=== PATIENT | female | born 1940 | race Two or more races ===

== ENCOUNTER 2019-01-19 13:40 | Outpatient (CLI) | payer MEDICARE, OTHER ==
[~2019-01-19] VITALS: Ht 154.9 cm; Wt 52.6 kg
[2019-01-19 16:09] VITALS: BP 128/64
[2019-01-19] MEDS ORDERED: NEXIUM40 MG ORAL (16:16)
[2019-01-19] MEDS ORDERED: XANAX0.5 MG ORAL (16:16)
[2019-01-19] MEDS ORDERED: ARICEPT10 MG ORAL (16:16)
[2019-01-19] MEDS ORDERED: ADVAIR 100/501 PUFF1 INH (16:16)
[2019-01-19] MEDS ORDERED: PRAVACHOL20 MG ORAL (16:16)
[2019-01-19] MEDS ORDERED: VITAMIN D250000 UNI1 ORAL (16:16)
--- NOTE | 2019-02-10 16:15 | Consultation ---
DATE OF CONSULTATION: 01/19/2019 CONSULTING PHYSICIAN: Walter Villela M.D. REFERRING PHYSICIAN: Lawrence Flores M.D. CHIEF COMPLAINT: Gastric submucosal lesion. HISTORY OF PRESENT ILLNESS: The patient is a 78-year-old [place] female was seen by Dr. Flores, who did endoscopy for some lesions in the stomach and needed endoscopic ultrasound, so he referred her to us for that. PAST MEDICAL HISTORY: 1. Breast cancer. 2. Peptic ulcer disease. 3. GERD. 4. Asthma. PAST SURGICAL HISTORY: Right breast surgery. MEDICATIONS: See medication reconciliation list. FAMILY HISTORY: No family history of GI malignancies. SOCIAL HISTORY: The patient denies any tobacco, alcohol, or drug abuse. ALLERGIES: No known drug allergies. REVIEW OF SYSTEMS: A 10-point review of systems was performed and is positive for gastroesophageal reflux disease and abdominal pain. PHYSICAL EXAMINATION: VITAL SIGNS: Temperature 98.6, blood pressure 128/64, pulse 56, and respirations 20. Weight is 116. Height is 5 feet 1 inch. HEENT: Normocephalic and atraumatic. Sclerae anicteric. NECK: Supple. No evidence of lymphadenopathy. CARDIOVASCULAR: Regular rhythm. Plus S1 and S2. No obvious murmur. LUNGS: Clear to auscultation bilaterally. ABDOMEN: Positive bowel sounds. Soft and nontender. No rebound. No guarding. No peritoneal sign. EXTREMITIES: No cyanosis. No clubbing. No edema. ASSESSMENT AND PLAN: A 78-year-old female with gastric submucosal lesion. We will schedule for EGD and EUS. The patient was informed the risks and benefits of the procedure and she agreed. The patient is scheduled to get an endoscopic ultrasound next week. I want to thank Dr. Flores for this kind referral. Walter Villela M.D. DR: JILL JOB#: [id number] CC: Lawrence Flores M.D.
== END 2019-01-19 15:40 | disposition home or self-care (01) ==
LOC: PAN 13:40
DX: K31.9 Disease of stomach and duodenum, unspecified (principal); K21.9 Gastro-esophageal reflux disease without esophagitis; Z85.3 Personal history of malignant neoplasm of breast; Z87.11 Personal history of peptic ulcer disease; R10.9 Unspecified abdominal pain

== ENCOUNTER 2019-02-06 08:15 | Day surgery (SDC) | payer MEDICARE, OTHER ==
[~2019-02-06] VITALS: Ht 154.9 cm; Wt 53.1 kg
[2019-02-06] VITALS (8 sets, daily range): BP systolic 98–127; BP diastolic 47–74
[~2019-02-06 08:15] MED LIST: ADVAIR 100/501 PUFF1 INH; ARICEPT10 MG ORAL; NEXIUM40 MG ORAL; PRAVACHOL20 MG ORAL; VITAMIN D250000 UNI1 ORAL; XANAX0.5 MG ORAL
[2019-02-06] MEDS ORDERED: DEXILANT60 MG ORAL (09:07)
[2019-02-06] MEDS ORDERED: Propofol 200mg/20ml IV ONE (10:00)
[2019-02-06] MEDS ORDERED: fentaNYL 100 mcg/2 mL IV ONE (10:00)
--- NOTE | 2019-02-06 10:20 | Anethesia Preoperative Eval ---
Anesthesia Pre-op PMH/ROS General Date of Evaluation: Feb 06, 2019 Time of Evaluation: 10:19 Anesthesiologist: Felipe ASA Score: ASA 3 Mallampati Score Class I : Soft palate, uvula, fauces, pillars visible Class II: Soft palate, uvula, fauces visible Class III: Soft palate, base of uvula visible Class IV: Only hard plate visible Mallampati Classification: Class II Surgeon: Manohar Diagnosis: EGD with EUS Surgical Procedure: Esophagial lesion Allergies: Coded Allergies: No Known Allergies (Unverified , 01/19/19) Patient NPO?: Yes Past Medical History Cardiovascular: Denies: HTN, CAD, CA, valve dz, arrhythmia, other Pulmonary: Denies: asthma, COPD, HUMPHREY, other Gastrointestinal/Genitourinary: Reports: GERD; Denies: CRI, ESRD, other Neurologic/Psychiatric: Reports: depression/anxiety; Denies: dementia, CVA, TIA, other Endocrine: Denies: DM, hypothyroidism, steroids, other HEENT: Denies: cataract (L), cataract (R), glaucoma, C[place]BA (L), [place] (R), other Hematology/Immune: Denies: anemia, DVT, bleeding disorder, other Musculoskeletal/Integumentary: Denies: OA, RA, DJD, DDD, edema, other PMH Narrative: as above PSxH Narrative: see H&P Anesthesia Pre-op Phys. Exam Physician Exam Last Vital Signs Date Time Temp Pulse Resp B/P (MAP) Pulse Ox O2 Delivery O2 Flow Rate FiO2 02/06/19 09:09 Room Air 02/06/19 09:00 97.4 56 20 127/65 96 Constitutional: NAD Neurologic: CN 2-12 intact Cardiovascular: RRR, no M/R/G Respiratory: CTA Gastrointestinal: S/NT/ND Airway Exam Mallampati Score: Class II MO: limited Neck: stiff Teeth: missing Dentures: no upper, no lower Anesthesia Pre-op A/P Risk Assessment & Plan Assessment: ASA 2 Plan: Eric Lorenzo MD Feb 06, 2019 10:20
--- NOTE | 2019-02-06 10:34 | Pre-Procedure Note/Attestation ---
Pre-Procedure Note/Attestation Complete Prior to Procedure Planned Procedure: not applicable Procedure Narrative: egd/EUS Indications for Procedure Pre-Operative Diagnosis: gastric sub mucosal lesion Attestation I attest that I discussed the nature of the procedure; its benefits; risks and complications; and alternatives (and the risks and benefits of such alternatives ), prior to the procedure, with the patient (or the patient's legal sales development representative). I attest that, if there was a reasonable possibility of needing a blood transfusion, the patient (or the patient's legal sales development representative) was given the [facility] standardized written summary, pursuant to the [place] Blood Safety Act ([place] Health and Safety Code # 1645, as amended). I attest that I re-evaluated the patient just prior to the surgery and that there has been no change in the patient's H&P, except as documented below: Walter Villela MD Feb 06, 2019 10:34
--- NOTE | 2019-02-06 10:36 | Short Stay Surgery H&P ---
History of Present Illness History of Present Illness Chief Complaint gastric sub mucosal lesion HPI Aaliyah Sparrow is a 78 year old female who was admitted on for Esophageal Lesion Patient History Allergies: Coded Allergies: No Known Allergies (Unverified , 01/19/19) PAST MEDICAL HISTORY: (1) Breast cancer (2) GERD (gastroesophageal reflux disease) (3) Asthma Medication History Scheduled Alprazolam* (Xanax*), 0.5 MG ORAL QHS, (Reported) Dexlansoprazole (Dexilant), 60 MG ORAL DAILY, (Reported) Donepezil Hcl* (Aricept*), 10 MG ORAL DAILY, (Reported) Ergocalciferol (Vitamin D2)* (Vitamin D*), 50,000 UNIT ORAL EVERY TWO WEEKS, ( Reported) Fluticasone/Salmeterol (Advair 100-50 Diskus), 2 PUFF INH EVERY 12 HOURS, ( Reported) Pravastatin Sod* (Pravachol*), 10 MG ORAL BEDTIME, (Reported) Discontinued Medications Esomeprazole Magnesium (Nexium), 40 MG ORAL DAILY, (Reported) Discontinued Reason: Pt stopped taking med Review of Systems Cardiovascular: Reports: no symptoms Respiratory: Reports: no symptoms Skeletal: Reports: no symptoms Gastrointestinal: Reports: no symptoms Genitourinary: Reports: no symptoms Neurologic: Reports: no symptoms Endocrine: Reports: no symptoms Hematologic: Reports: no symptoms Physical Exam Vital Signs Last Vital Signs Date Time Temp Pulse Resp B/P (MAP) Pulse Ox O2 Delivery O2 Flow Rate FiO2 02/06/19 09:09 Room Air 02/06/19 09:00 97.4 56 20 127/65 96 Skin: normal HENT: normal Heart: normal Lungs: normal Abdomen: normal Extremities: normal Plan Plan of Care EGD/EUS Attestation Are the patient's medical conditions optimized for surgery? Attestation Response: yes Walter Villela MD Feb 06, 2019 10:36
--- NOTE | 2019-02-06 10:56 | Endoscopy Procedure Note ---
Endoscopy Procedure Note General Indication for Procedure: gastric sub mucosal lesion Procedures Performed: EGD, other - EUS Operative Findings/Diagnosis: same Specimen: yes Pt Tolerated Procedure Well: Yes Estimated Blood Loss: none Anesthesia Anesthesiologist: fracisco Anesthesia: MAC Inserted Devices Implant(s) used?: No GI Core Measures 50 yrs or older w/o bx or poly: Not Applicable 10yrs. F/U recommended: Not Applicable Walter Villela MD Feb 06, 2019 10:56
--- NOTE | 2019-02-06 11:19 | Immediate Post-Op Evaluation ---
Immediate Post-Op Evalulation Immediate Post-Op Evalulation Procedure: EGD with EUS Date of Evaluation: Feb 06, 2019 Time of Evaluation: 11:18 IV Fluids: 700 Blood Products: none Estimated Blood Loss: none Urinary Output: none Blood Pressure Systolic: 116 Blood Pressure Diastolic: 72 Pulse Rate: 66 Respiratory Rate: 20 O2 Sat by Pulse Oximetry: 98 Temperature (Fahrenheit): 97.6 Pain Score (1-10): 1 Nausea: No Vomiting: No Complications none Patient Status: reacts, patent, none Hydration Status: adequate Eric Wang MD Feb 06, 2019 11:19
--- NOTE | 2019-02-06 12:11 | 48 Hour Post Anesthesia Eval ---
Post Anesthesia Evaluation Procedure: EGD with EUS Date of Evaluation: Feb 06, 2019 Time of Evaluation: 12:10 Blood Pressure Systolic: 121 0: 74 Pulse Rate: 68 Respiratory Rate: 20 Temperature (Fahrenheit): 97.6 O2 Sat by Pulse Oximetry: 98 Airway: patent Nausea: No Vomiting: No Pain Intensity: 1 Hydration Status: adequate Cardiopulmonary Status: stable Mental Status/LOC: patient returned to baseline Follow-up Care/Observations: n/a Post-Anesthesia Complications: none Follow-up care needed: ready to discharge Eric Wang MD Feb 06, 2019 12:11
--- NOTE | 2019-02-06 21:00 | Procedure Note ---
DATE OF PROCEDURE: 02/06/2019 SURGEON: Walter Villela M.D. PROCEDURE: Upper endoscopy with biopsy and endoscopic ultrasound. ANESTHESIA: Per Dr. Eric Wang. INSTRUMENT: Olympus adult flexible upper endoscope and EUS scope. INDICATION: Gastric submucosal lesion. REASON FOR PROCEDURE: The procedure, risks, benefits, and possible consequences, including hemorrhage, aspiration, perforation and infection, and alternative treatments, were explained to the patient/legal guardian by Dr. Walter Villela and the patient/legal guardian understood and accepted these risks. PROCEDURE IN DETAIL: After informed consent was obtained and the patient was adequately sedated, Olympus upper endoscope was advanced from mouth into the second portion of duodenum and retroflexion was performed in the stomach. GE junction was found to be about 35 cm from the incisors. In the stomach, there was diffuse gastritis. There was a small nodule in the antrum of the stomach. The nodule measured roughly about 5 mm, removed with the cold biopsy forceps technique. The questionable vascular lesion that was seen by prior endoscopy is not fully seen. At this time, the upper endoscope was retrieved and the EUS scope was introduced. Starting scanning at GE junction, first we saw left adrenal gland. There was no evidence for adrenal gland adenopathy. Then pancreatic body and tail was examined while the scope was left in the stomach. There was no evidence of any pancreatitis, no pancreatic cyst, no pancreatic malignancy, and no pancreatic duct dilatation. Then, the scope was advanced to the duodenal bulb and second portion of the duodenum where the head of the pancreas was fully examined. Common bile duct was seen measured roughly about 6.4 mm, which is normal for her age. No pancreatic duct dilatation. At this time, the scope was pulled back into the stomach. The gastric wall was quickly scanned without any obvious lesion. SUMMARY OF FINDINGS: 1. Mild atrophic gastritis. 2. Gastric nodule status post biopsy. 3. Common bile duct of 6.4 mm, normal for her age. 4. No obvious pancreatic mass or pancreatitis. RECOMMENDATIONS: 1. Continue on PPI daily that she is currently on. 2. Follow up biopsy results. 3. We will refer the patient back to Dr. Flores for further followup. I want to thank, Dr. Flores, for this kind referral. Walter Rosio Villela DR: SEJAL JOB#: [id number] CC: Lawrence Flores M.D.
== END 2019-02-06 12:10 | disposition home or self-care (01) ==
LOC: GAS 08:15
DX: K31.9 Disease of stomach and duodenum, unspecified (principal); K29.70 Gastritis, unspecified, without bleeding; K21.9 Gastro-esophageal reflux disease without esophagitis; Z85.3 Personal history of malignant neoplasm of breast; Z79.899 Other long term (current) drug therapy; F41.9 Anxiety disorder, unspecified; F32.9 Major depressive disorder, single episode, unspecified
CPT/HCPCS: 43239; 43259; 93005; J2704; J3010; 94003; 94150